=== PATIENT | male | born 1950 | race Caucasian/White ===

== ENCOUNTER 2018-04-12 07:40 | Emergency (ER) | payer MEDICARE ==
[~2018-04-12] VITALS: Ht 182.9 cm; Wt 102.1 kg
[2018-04-12] MEDS ORDERED: LORATADINE10 M2 PO (07:56)
[2018-04-12] MEDS ORDERED: LISINOPRIL20 MG PO (07:56)
[2018-04-12] MEDS ORDERED: INDOMETHACIN25 MG PO (07:56)
[2018-04-12] MEDS ORDERED: FERROUS SULFAT140 MG PO (07:57)
[2018-04-12] MEDS ORDERED: COLCRYS0.6 MG PO (07:57)
[2018-04-12] MEDS ORDERED: ZYLOPRIM100 MG PO (07:57)
[2018-04-12] MEDS ORDERED: B-12 DOTS500 MCG PO (07:58)
[2018-04-12] MEDS ORDERED: OMEPRAZOLE20 MG PO (07:58)
[2018-04-12] MEDS ORDERED: FLOMAX0.4 MG PO (07:58)
[2018-04-12] MEDS ORDERED: LIDODERM1 EACH TD (08:20)
[2018-04-12] MEDS ORDERED: NEURONTIN300 MG PO (08:20)
[2018-04-12] MEDS ORDERED: DICLOFENAC SOD100 G1 TOP (08:20)
[2018-04-12] MEDS ORDERED: PREDNISONE20 MG PO (08:23)
== END 2018-04-12 08:40 | disposition home or self-care (01) ==
LOC: ED 07:40
DX: M54.41 Lumbago with sciatica, right side (principal); I10 Essential (primary) hypertension; Z87.891 Personal history of nicotine dependence; Z79.899 Other long term (current) drug therapy
CPT/HCPCS: 96372; 99283; J1100